=== PATIENT | male | born 1950 | race Caucasian/White ===

== ENCOUNTER 2023-03-12 10:07 | Emergency (ER) | payer OTHER ==
[2023-03-12 10:49] LABS: #Eosinphils 0.2 10x3/uL (0.0-0.5); #Neutrophils 7.1 10x3/uL (1.5-8.4); %Basophils 0.2 % (0.0-2.0); %Eosinophils 2.3 % (0.0-6.0); %Lymphocytes 8.6 % (18.0-47.0); %Monocytes 19.1 % (0.0-10.0); %Neutrophils 69.5 % (40.0-75.0); Hematocrit 29.9 % (38.8-50.0); Hemoglobin 9.4 g/dL (13.5-17.5); Mean Corpuscular HGB CONC 31.4 g/dL (32.0-36.0); Mean Corpuscular Hemoglobin 25.1 pg (27.0-33.0); Mean Corpuscular Volume 79.9 fl (81.2-95.1); Platelet Count 395 10x3/uL (150-450); RBC Distribution Width 16.8 % (11.5-14.5); Red Blood Cell (RBC) Count 3.74 10x6/uL (4.32-5.72); White Blood Cell (WBC) Count 10.2 10x3/uL (3.5-10.5)
[2023-03-12 11:08] LABS: Bilirubin Neg (Negative); Blood, Urine 150 (Negative); Clarity Cloudy (Clear); Glucose, Urine (Dipstick) Normal (Negative); Ketone, Urine Negative (Negative); Leukocyte 500 (Negative); Nitrite Negative (Negative); Protein, Urine (Dipstick) 100 mg/dl (Neg-Trace); pH, Urine 6.5 (5.0-9.0)
[2023-03-12 11:13] LABS: ALT (SGPT) 7 U/L (8-55); AST (SGOT) 15 U/L (5-34); Albumin 3.5 g/dL (3.4-4.8); Alkaline Phosphatase 39 U/L (40-110); Anion Gap 13 mmol/L (10-20); BUN (Urea Nitrogen) 13 mg/dL (8.4-25.7); Bilirubin, Total 0.7 mg/dL (0.2-1.2); Calc. Creatinine Clearance 0 mL/min (70-130); Calcium 8.5 mg/dL (7.8-10.44); Carbon Dioxide 24 mmol/L (23-31); Chloride 100 mmol/L (98-107); Estimated GFR 83; Globulin 2.1 g/dL (2.4-3.5); Glucose 107 mg/dL (83-110); Potassium 3.7 mmol/L (3.5-5.1); Protein, Total 5.6 g/dL (5.8-8.1); Sodium 133 mmol/L (136-145)
[2023-03-12 11:24] LABS: Bacteria/HPF 4+ HPF (None Seen); CAUTI Indications for Culture Dysuria,urgency,freq; WBC/HPF Greater than 50 HPF (0-3)
[2023-03-12 11:26] LABS: Urine Culture Reflex Yes Yes
[2023-03-12] MEDS ORDERED: cefTRIAXone (ROCEPHIN) 1 GM VIAL ONE (11:45)
[2023-03-12 11:59] LABS: SARS-CoV-2 NAA Rapid Test Not Detected (NotDetected)
[2023-03-12] MEDS ORDERED: Furosemide 40 MG/4 ML VIAL ONE (12:30)
[2023-03-12] MEDS ORDERED: HYDROcodone/Acetaminophen 10/325 mg Tablet ONE (15:40)
[2023-03-12] MEDS ORDERED: dilTIAZem 60 MG TAB PO SCH (17:15)
== END 2023-03-12 19:55 | disposition short-term general hospital (02) ==
LOC: CSHERS 10:07
DX: N50.89 Other specified disorders of the male genital organs (principal); K62.5 Hemorrhage of anus and rectum; N39.0 Urinary tract infection, site not specified; R60.1 Generalized edema; I11.0 Hypertensive heart disease with heart failure; I50.9 Heart failure, unspecified; I25.10 Atherosclerotic heart disease of native coronary artery without angina pectoris; Z79.01 Long term (current) use of anticoagulants; E78.5 Hyperlipidemia, unspecified; Z20.822 Contact with and (suspected) exposure to COVID-19; I48.91 Unspecified atrial fibrillation; Z79.82 Long term (current) use of aspirin; Z79.899 Other long term (current) drug therapy
CPT/HCPCS: 36415; 71045; 76870; 80053; 81001; 82274; 83735; 83880; 85025; 87077; 87086; 87186; 93005; 93976; 96374; 96375; J0696; J1940; U0002